=== PATIENT | male | born 1985 | race Caucasian/White ===

== ENCOUNTER 2018-03-11 15:09 | Emergency (ER) | payer MEDICAID, OTHER | END 2018-03-11 17:57 | disposition home or self-care (01) | LOC: FTE 15:09 | DX: T16.2XXA Foreign body in left ear, initial encounter (principal); X58.XXXA Exposure to other specified factors, initial encounter; Y92.9 Unspecified place or not applicable | CPT/HCPCS: 69200; 99283-25 ==